=== PATIENT | male | born 1975 | race Caucasian/White ===

== ENCOUNTER → 2020-03-06 14:18 | Outpatient (CLI) | payer OTHER, SELFPAY ==
--- NOTE | ~2020-03-06 | MR_ITS ---
. EXAMINATION: MR shoulder LT wo con DATE: 03/06/2020 15:00 INDICATION: Superior glenoid labrum lesion of left shoulder. TECHNIQUE: Magnetic resonance imaging (MRI) of the left shoulder was performed without intravenous co ntrast. Sequences included axial PD-weighted FS FSE, coronal oblique PD-weighted FS FSE and T2-weight ed FS FSE, and sagittal oblique T2-weighted FS FSE and T1-weighted FSE. COMPARISON: Left shoulder radiographs 02/26/2020 FINDINGS: Coracoacromial arch: The acromion undersurface is curved in morphology (type II). There is severe acromioclavicular joint osteoarthritis including inferiorly directed osteophytes. There is mild subacromial/subdeltoid bursit is. Rotator cuff: There is severe supraspinatus tendinopathy and mild infraspinatus tendinopathy. Teres minor tendon is normal. There is mild subscapularis tendinopathy. No tear. There is no asymmetric fatty atrophy of t he rotator cuff muscle bellies. Biceps tendon and glenoid labrum: Biceps tendon is in bicipital groove. Intra-articular biceps tendon is normal. There is a tear of pos terior labrum from 7:00 to 9:00 with 4 mm paralabral cyst. Fluid: There is no glenohumeral joint effusion. Bones/cartilage: Glenoid cartilage is normal. Humeral cartilage is normal. IMPRESSION: 1. Tear of posterior labrum with small paralabral cyst. 2. Severe rotator cuff tendinopathy. No tear. 3. Severe acromioclavicular joint osteoarthritis. 4. Mild subacromial/subdeltoid bursitis. Reviewed, dictated and finalized at location A.
== END ==
PROVIDERS: PCP Family Medicine; Visit Provider Orthopaedic Surgery
DX: M19.012 Primary osteoarthritis, left shoulder (principal); M75.52 Bursitis of left shoulder; S43.432A Superior glenoid labrum lesion of left shoulder, initial encounter; X58.XXXA Exposure to other specified factors, initial encounter
CPT/HCPCS: 73221

== ENCOUNTER 2022-01-30 09:33 | Outpatient (CLI) | payer BC, SELFPAY ==
[2022-01-30 10:07] LABS: Cholesterol 128 mg/dL (0-200); HDL Direct 37 mg/dL; Triglycerides 126 mg/dL (<150)
[2022-01-30 10:18] LABS: LDL Cholesterol Direct 60 mg/dL
== END 2022-01-30 09:34 | disposition home or self-care (01) ==
LOC: ANHLAB 09:39
PROVIDERS: PCP Family Medicine; Visit Provider Specialist
DX: E78.5 Hyperlipidemia, unspecified (principal); I25.10 Atherosclerotic heart disease of native coronary artery without angina pectoris; Z95.5 Presence of coronary angioplasty implant and graft
CPT/HCPCS: 36415; 80061

== ENCOUNTER 2023-03-16 07:03 | Outpatient (CLI) | payer OTHER, SELFPAY ==
[2023-03-16 08:09] LABS: Cholesterol 127 mg/dL (0-200); HDL Direct 30 mg/dL; Triglycerides 152 mg/dL (<150)
[2023-03-16 08:19] LABS: LDL Cholesterol Direct 54 mg/dL
== END 2023-03-16 07:04 | disposition home or self-care (01) ==
PROVIDERS: PCP Family Medicine; Visit Provider Specialist
DX: I25.10 Atherosclerotic heart disease of native coronary artery without angina pectoris (principal)
CPT/HCPCS: 36415; 80061

== ENCOUNTER 2023-11-24 18:30 | Emergency (ER) | payer OTHER, SELFPAY ==
--- NOTE | ~2023-11-24 | XR_ITS ---
XR ankle RT min 3V 11/24/2023 19:28 INDICATION: Right ankle pain PROCEDURE: 4 views right ankle COMPARISON: No prior studies for comparison. FINDINGS: Fracture, dislocation or subluxation is not identified. The soft tissues appear within norm al limits. No foreign bodies are identified. IMPRESSION: 1: NO ACUTE BONE OR JOINT ABNORMALITY IDENTIFIED. Reviewed, dictated and finalized at location A.
[2023-11-24 18:53] VITALS: BP 125/81; PULSE 69; RESP 18; TEMP 36.8; O2SAT 98
--- NOTE | 2023-11-24 19:29 | ED.LOWEXIN ---
HPI - Extremity Injury (Lower) General Chief Complaint: Extremity Injury, Lower Stated Complaint: extremity injury Time Seen by Provider: 11/24/23 19:28 Source: patient Mode of arrival: ambulatory Limitations: no limitations History of Present Illness HPI Narrative: 48 YEARS OLD WHITE MALE CAME TO THE EMERGENCY ROOM BY PRIVATE CAR COMPLAINING OF SUDDEN ONSET OF PAIN AT THE BACK OF THE RIGHT ANKLE WHILE PLAYING BASKETBALL. HE DENIES OTHER INJURIES. UNABLE TO PUT WEIGHT ON IT, UNABLE TO FLEX OR EXTEND HIS RIGHT FOOT. Related Data Home Medications Medication Instructions Recorded Confirmed evolocumab 140 mg/mL subcutaneous 140 mg subcut ONCE 04/24/22 04/24/22 pen injector (Repatha SureClick) Allergies Allergy/AdvReac Type Severity Reaction Status Date / Time No Known Allergies Allergy Unknown Verified 04/24/22 09:39 Review of Systems Review of Systems: All systems reviewed & are unremarkable except as noted in HPI and below PMFSH Past Medical History Medical History Gastrocnemius strain, left Tendonitis of left rotator cuff Family History Family History Grandparent Family history of arthritis Family history of Alzheimer's disease Father Family history of sudden Social History Social History Smoking status: Never smoker Alcohol intake: current Exam Narrative: GENERAL APPEARANCE: WELL-DEVELOPED, WELL-NOURISHED SKIN: NORMAL COLOR HEAD: NORMOCEPHALIC, NONTRAUMATIC EYES: CLEAR CONJUNCTIVA ENT: OROPHARYNX NORMAL, EARS NORMAL, NOSE NORMAL NECK: SUPPLE, NONTENDER CHEST AND RESPIRATORY: AIRWAY PATENT, NO RESPIRATORY DISTRESS, NO ACCESSORY MUSCLE USE HEART: REGULAR RATE/RHYTHM ABDOMEN: SOFT, NONTENDER, NO ORGANOMEGALY, QUIET BOWEL SOUNDS VASCULAR: NORMAL PERIPHERAL PULSES, NORMAL CAPILLARY REFILL. MUSCULOSKELETAL: SEVERE DIFFUSE TENDERNESS OF THE RIGHT ACHILLES TENDON AT THE ANKLE AREA, POSITIVE DELGADO TEST NEUROLOGIC: ALERT AND ORIENTED ?3, INSIDE SALES LEAD IS NORMAL TESTED, NO GROSS MOTOR DEFICIT Course Vital Signs Vital signs: Vital Signs Temperature 36.8 C 11/24/23 18:53 Pulse Rate 69 11/24/23 18:53 Respiratory Rate 18 11/24/23 18:53 Blood Pressure 125/81 11/24/23 18:53 Pulse Oximetry 98 11/24/23 18:53 Temperature 36.8 C 11/24/23 18:53 Pulse Rate 69 11/24/23 18:53 Respiratory Rate 18 11/24/23 18:53 Blood Pressure 125/81 11/24/23 18:53 Pulse Oximetry 98 11/24/23 18:53 MDM - Extremity Injury (Lower) MDM Narrative Medical decision making narrative: PHYSICAL EXAM SHOWED POSITIVE DELGADO TEST CONSISTENT WITH ACHILLES TENDON RUPTURE, X-RAY OF THE RIGHT ANKLE SHOWED NO ACUTE ABNORMALITY, PATIENT WAS SEEN IN THE PAST BY DR CHAMORRO IN THE PAST AND WOULD LIKE TO FOLLOW UP WITH HIM. ICE PACK, LEG ELEVATION, IBUPROFEN, TYLENOL NEEDED, CRUTCHES, ANKLE BRACE OR WALKING BOOT Differential Diagnosis Differential diagnosis: Likely other ( ABOVE) Imaging Data Radiologist's impression: Impressions Ankle X-Ray 11/24/23 19:30 IMPRESSION: 1: NO ACUTE BONE OR JOINT ABNORMALITY IDENTIFIED. Critical Care Time Critical Care Time Critical Care Time: No Discharge Plan Discharge Clinical Impression: Achilles tendon injury Patient Disposition: Home, Self-Care Condition: Stable Instructions: Achilles Tendon Rupture (ED) Additional Instructions: RETURN IF SYMPTOMS ARE WORSENING , CALL DR. CHAMORRO FOR APPOINTMENT, TAKE TYLENOL, IBUPROFEN NEEDED FOR ACHES AND PAIN, CONTINUE HOME MEDI
--- NOTE | 2023-11-24 20:40 | PC.NURSE ---
Peyman wrap applied to Right foot/ankle. Pt returned demonstrated application.
[2023-11-24 21:07] VITALS: BP 135/74; PULSE 68; RESP 14; O2SAT 99
--- NOTE | 2023-11-24 21:07 | PC.NURSE ---
Declined crutches stating he has a pair at home. No crutches here in dept for pt's size, had called central supply.
== END 2023-11-24 21:08 | disposition home or self-care (01) ==
PROVIDERS: Emergency Provider Emergency Medicine; PCP Family Medicine
DX: S86.001A Unspecified injury of right Achilles tendon, initial encounter (principal); X58.XXXA Exposure to other specified factors, initial encounter; Y93.67 Activity, basketball
CPT/HCPCS: 73610; 99283

== ENCOUNTER 2023-12-02 08:28 | Day surgery (SDC) | payer OTHER, SELFPAY ==
[2023-12-01 08:55] VITALS: BMI 29.9
--- NOTE | 2023-12-01 09:00 | PC.NURSE ---
Report to the Outpatient Waiting Room, entrance under the green pavilion located off [facility], at time 0930 on date 12/03/23. Planned Procedure Time: 1130. Time changes happen often and if your time is changed the preop area will call you the afternoon before. - You and your visitor will be asked to self-screen and do not enter if you have any COVID symptoms. - A mask is optional within the hospital at this time. Patients may have clear liquids (water, carbonated beverages, clear teas, apple juice) until 3 hours prior to surgery with a maximum of 20 ounces. - No food from midnight until time of surgery Take the following medications with a SIP of water the morning of surgery: PAIN PILL IF NEEDED DO NOT STOP ANY OF YOUR OTHER PRESCRIPTION MEDICATIONS PRIOR TO SURGERY ?EXCEPT THE FOLLOWING Medications to discontinue per physician: N/A Date to take last dose: N/A Please no make-up, nail english, hairspray, perfume, deodorant, or body powder the day of surgery. No jewelry (including any body piercings) or valuables the day of surgery, leave them at home. Please take a shower or bath the night before, or the morning of, surgery with an antibacterial soap. Wear comfortable, loose fitting clothing. - Jewelry must be removed prior to entering the operating room. Rings and piercings that are not removed may be cut off. - The hospital will not accept responsibility for valuables. - Please leave all valuables, including medications, at home the day of surgery. If you are going home after surgery, a licensed parts delivery driver must drive you home. - NO public transportation without another adult if you receive anesthesia. - We recommend that an adult stay with you for 24 hours following discharge. - We also recommend that you do not drive, make important decision, drink alcoholic beverages, or take any drugs that were not prescribed by your health care provider for at least 24 hours after your discharge time. Follow any additional instructions given to you from your surgeon. If you or anyone in your household have experienced Covid symptoms in the past week, please notify your surgeon or the nurse liaison at the phone number below for possible testing. Telephone instructions given to PT - SYED and asked if any additional questions and then verbalized understanding. Patient advised to call surgeon office or pre surgery nurse liaison [phone] if any additional questions.
[2023-12-02] VITALS (9 sets, daily range): BP systolic 124–167; BP diastolic 86–104; PULSE 61–82; RESP 10–20; TEMP 35.9; O2SAT 94–100
--- NOTE | 2023-12-02 08:57 | ECG_ITS ---
SEE SCANNED COPY FOR CONFIRMED REPORT MTDD
--- NOTE | 2023-12-02 09:32 | WPDANESEPPF ---
Anes - Initial Pre Proc Eval Procedure: Operation Date: 12/02/23 10:00 Proposed Procedures p Right Achilles Tendon Repair - Sonido Nelson MD Date/Time: 12/02/23 09:32 Surgeon: Sonido Nelson MD Pre Op Diagnosis: acute achilles tendon rupture Patient Data Age: 48 Gender: M Height: 1.91 m Weight: 108.9 kg Allergies Allergy/AdvReac Type Severity Reaction Status Date / Time No Known Allergies Allergy Unknown Verified 12/01/23 08:54 Home Medications Medication Instructions Recorded Confirmed Type evolocumab 140 mg/mL subcutaneous 140 mg subcut ONCE 04/24/22 12/01/23 History pen injector (Repatha SureLamineick) hydrocodone 5 mg-acetaminophen 325 1 - 2 tablet PO Q4H PRN pain #30 11/30/23 12/01/23 Rx mg tablet tabs Patient hx anesthesia problems: none Family hx anesthesia problems: none Results Review: All pre-operative results and documents have been reviewed as part of the pre-operative evaluation. [facility] Past Medical History Medical History Gastrocnemius strain, left Tendonitis of left rotator cuff Family History Family History Grandparent Family history of arthritis Family history of Alzheimer's disease Father Family history of sudden Social History Social History Smoking status: Never smoker Alcohol intake: current Alcohol use details: VERY RARE Substance use: never Substance use type: does not use Do You Feel Safe in your Home?: Yes Lack of Transportation: No Lack of Food: Never True Current Housing: I Have Housing Concerned About Future Housing: No Difficulty Paying Gas/Electric Bills: No Difficulty Paying for Meds: No Currently Unemployed: No Education: Master's Degree or Higher Difficulty w/ Childcare or Family Care: No Living arrangements: with family Spiritual care concerns: No Anes - Eval Final PreProcedure Day of Procedure 12/02/23 09:32 Patient weight: overweight Heart: regular rate and rhythm Lungs: clear to auscultation Airway: Mallampati scale Neurological: alert and oriented Last oral intake: >/= 8 hours ASA classification: III Emergent: no Anesthetic plan: proceed Anesthesia type and monitoring: general ETT and standard monitoring Results Review: All pre-operative results and documents have been reviewed as part of the pre-operative evaluation. Pt s/p PTCA 2019, doing well since, able to play basketball (led up to injury), no cp or sob. Informed Consent: The patient's anesthetic plan and its attendant risks and benefits were discussed with the patient/family/POA. Questions were solicited and answers provided to the satisfaction of the patient/family/POA.
[2023-12-02] MEDS: ACETAMINOPHEN 500 MG TABLET 1000 MG PO (09:35)
[2023-12-02] MEDS: KETOROLAC 15 MG/ML VIAL (*BKC) IV PUSH (09:35)
[2023-12-02] MEDS: ceFAZolin 2 GM/D5W 50 ML 2 GM/50 ML BAG IVPB (09:35)
--- NOTE | 2023-12-02 10:04 | WPDHPUPDATE1 ---
History and Physical Update Update Date/Time: 12/02/23 10:04 History and Physical has been reviewed, including an updated exam of the patient. There are NO changes in the patient's condition. Risks, benefits, and alternatives have been discussed and questions answered. Patient agrees to proceed with procedure.
[2023-12-02] MEDS: LACTATED RINGERS 1,000 ML 30 ML IV CONT ×2 (12:15)
[2023-12-02] MEDS: fentaNYL CITRATE INJ (*CRX) 100 MCG/2 ML VIAL 25 MCG IV PUSH ×8 (12:35→13:09)
--- NOTE | 2023-12-02 12:46 | P.OP_ITS ---
Procedure Note - Detailed Date of Procedure 12/02/23 Pre-op Diagnosis Acute achilles tendon rupture, right. Post-op Diagnosis Same Procedure Performed Right Achilles tendon repair. Surgeon Sonido Nelson MD Heavy Equipment Technician Rickie Kelly Anesthesia General Findings Acute complete rupture right Achilles tendon. Description of Procedure Preoperative antibiotics were given. A general anesthetic was administered. Patient was placed in the prone position. Careful padding on the chest was performed. A bolster was placed under the ankles. Resting angle contralateral ankle was compared for tension assessment of the repair. The leg was prepped and draped in usual sterile fashion. A tourniquet was applied on the thigh but not used. A longitudinal incision approximately 7 cm was created along the medial aspect of the Achilles tendon border. Careful soft tissue handling was assured. The peritenon was protected and incised longitudinally along the center of the tendon. The torn ends of the tendon were lightly debrided. Krackow sutures were woven from the torn edge proximally and distally. The 2 free limbs were passed across the defect around the looped and of the Krackow sutures. This gift-box configuration was very secure and reapproximated the tendon ends very nicely. Tendon tension was restored. The ends were oversewn with interrupted 1. Vicryl suture. The wound was copiously irrigated. The wicho T9 was repaired with 2-0 Monocryl suture. The subcutaneous tissues were closed with 3-0 Monocryl suture and interrupted horizontal mattress 3-0 nylon suture. Xeroform was applied. A sterile bulky dressing with posterior splint and stirrups placed. The patient was extubated and brought to the recovery room in stable condition. There were no complications. Estimated Blood Loss 20 Pathology None sent Complications No immediate complications Condition Stable Disposition Same day [facility] Billing Surgery - Charge Forward: Surgery Billing
[2023-12-02] MEDS: oxyCODONE HCL (*CRX) 5 MG TAB IR PO (13:33)
== END 2023-12-02 14:13 | disposition home or self-care (01) ==
PROVIDERS: PCP Family Medicine; Visit Provider Orthopaedic Surgery
PROC: (CPT 27650; principal; 2023-12-02 10:00)
DX: S86.011A Strain of right Achilles tendon, initial encounter (principal); X58.XXXA Exposure to other specified factors, initial encounter; Y93.67 Activity, basketball; Z79.891 Long term (current) use of opiate analgesic; Z79.85 Long-term (current) use of injectable non-insulin antidiabetic drugs
CPT/HCPCS: 27650; 93005; A9270; J0690; J1100; J1885; J2405; J2704; J3010; J7120

== ENCOUNTER 2024-10-23 09:47 | Emergency (ER) | payer OTHER, SELFPAY ==
--- NOTE | ~2024-10-23 | XR_ITS ---
EXAMINATION: XR finger 2nd RT min 2V DATE: 10/23/2024 10:52 INDICATION: Right hand second digit splinter. TECHNIQUE: 4 views of right hand second digit were obtained. COMPARISON: None. FINDINGS: Alignment is normal. No fracture. 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 IMPRESSION: 1. No radiopaque foreign body. Note that wood is not radiopaque. Reviewed, dictated and finalized at location B.
[2024-10-23 09:50] VITALS: BP 163/92; PULSE 98; RESP 16; TEMP 36.5; O2SAT 98
--- NOTE | 2024-10-23 10:44 | ED_ITS ---
HPI - Wound/Laceration General Chief Complaint: Wound/Laceration Stated Complaint: splinter Time Seen by Provider: 10/23/24 10:34 Source: patient Mode of arrival: ambulatory Limitations: no limitations History of Present Illness HPI narrative: This is a 49-year-old male that presents to the emergency department after an injury to the right 2nd finger. Reports he has a piece of plywood stuck in the finger. He attempted to remove it, but was unable to. Has had worsening discomfort in the area. Denies fever or abnormal drainage. 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 Gastrocnemius strain, left Tendonitis of left rotator cuff Surgical History Surgical History Status post Achilles tendon repair Family History Family History Grandparent Family history of arthritis Family history of Alzheimer's disease Father Family history of sudden Social History Social History Smoking status: Never smoker Alcohol intake: current Alcohol use details: VERY RARE Substance use: never Substance use type: does not use Do You Feel Safe in your Home?: Yes Lack of Transportation: No Lack of Food: Never True Current Housing: I Have Housing Concerned About Future Housing: No Difficulty Paying Gas/Electric Bills: No Difficulty Paying for Meds: No Currently Unemployed: No Education: Master's Degree or Higher Difficulty w/ Childcare or Family Care: No Living arrangements: with family Spiritual care concerns: No Exam Narrative: GENERAL: Well-appearing, well-nourished, and in no acute distress. HEAD: Normocephalic, atraumatic. EYES: EOMI. EXTREMITIES: Normal range of motion. No edema or erythema. Foreign body felt under the skin of the right 2nd finger middle phalanx palmar surface SKIN: Warm, dry, no rash. NEURO: No focal deficits. Alert and oriented x3. PSYCH: Normal mood and affect Course Vital Signs Vital signs: Vital Signs Temperature 97.7 F 10/23/24 09:50 Pulse Rate 98 10/23/24 09:50 Respiratory Rate 16 10/23/24 09:50 Blood Pressure 163/92 H 10/23/24 09:50 Pulse Oximetry 98 10/23/24 09:50 Oxygen Delivery Room Air 10/23/24 09:50 Temperature 97.7 F 10/23/24 09:50 Pulse Rate 98 10/23/24 09:50 Respiratory Rate 16 10/23/24 09:50 Blood Pressure 163/92 H 10/23/24 09:50 Pulse Oximetry 98 10/23/24 09:50 Oxygen Delivery Room Air 10/23/24 09:50 Procedures Foreign Body Removal Foreign Body #1: Foreign Body Removal Date: 10/23/24 Foreign Body Removal Time: 11:43 Site: right and hand Description of foreign body: other (splinter) Sedation/Analgesia: other (lidocaine) Technique: removal with forceps and incision made to facilitate removal Confirmed by:: direct visualization Complications: none Post-procedure exam: awake, alert Neurovascular: normal capillary fill and no change from pre-procedure MDM - Wound/Laceration MDM Narrative Medical decision making narrative: Patient presents the emergency department for a splinter in his right 2nd finger. This was easily removed. Patient is neurovascularly intact. Updated on tetanus vaccination. Will be started on prophylactic antibiotics. Instructed to follow-up with his PCP. He was given warnings to return to the ER Differential Diagnosis Differential diagnosis: Likely laceration, avulsion of skin and other (foreign body) Imaging Data Radiologist's impression: ITS Impressions Finger X-Ray 10/23/24 11:08 IMPRESSION: 1. No radiopaque foreign body. Note that wood is not radiopaque. Critical Care Time Critical Care Time Critical Care Time: No Discharge Plan Discharge Clinical Impression: Foreign body of finger of right hand Patient Disposition: Home, Self-Care Condition: Stable Instructions: Antibiotic Form, Soft Tissue Foreign Body (ED) Additional Instructions: Return to the emergency department if you experience fever, redness or swelling of your wound, abnormal drainage from your wound, or any other symptoms that are concerning to you. Apply antibiotic ointment daily. Do not soak the wound. Clean with mild soap and water daily. Take oral antibiotic as prescribed Follow-up with your primary care doctor for wound check Patient Language: Yi Prescriptions: New cephalexin 500 mg capsule 500 mg PO Q8H 5 Days Qty: 15 0RF No Action Repatha SureClick 140 mg/mL pen injector 140 mg subcut ONCE Paxlovid 300 mg (150 mg x 2)-100 mg tablets,dose pack See Rx Instructions PO .COMPLEX Qty: 30 0RF Rx Instructions: take TWO 150 mg tablets of nirmatrelvir with ONE 100 mg tablet of ritonavir twice daily for 5 days PO azithromycin 250 mg tablet See Rx Instructions PO .COMPLEX Qty: 6 0RF Rx Instructions: For 250 mg dose pack: take 500 mg today (day 1), then 250 mg for 4 days (days 2-5) PO Follow-up/Referrals: Ernesto Kessler MD [Primary Care Provider] -
--- OUTSIDE RECORDS SUMMARY | 2024-10-23 11:09 | XMS_ITS | Encounter Summary ---
Author Organization [facility] Address [address] [facility] [place] [address] Care Team Providers Care Diesel Scoop Operator Name Role Phone Unavailable Primary Care Provider Unavailabl e Encounter Details Date Type Department Care Team (Late st Contact Info) Description 05/04/2023 Lab Requisition [facility] - DermPath Lab [address], [facility] [place] [phone] Saravanan Dunlap MD [address] [place] [address] Social History Tobacco Use Types Packs/Day Years Used Date Smoking Tobacco: Never Assessed Sex and Gender Information Value Date Recorded Sex Assigned at Not on file Gender Identity Not on file Sexual Orientation Not on file documented as of this encounter Plan of Treatment Not on file documented as of this encounter Procedures Procedure Name Priority Date/Time Associated Diagnosis Comments DERMATOPATHOLOGY Routine 05/03/2023 12:0 0 AM CDT documented in this encounter Results * DERMATOPATHOLOGY (05/03/2023 12:00 AM CDT) Case Report Dermatopathology Report Case: [id number] Authorizing Provider: Saravanan Dunlap MD Collected: 05/03/2023 12:00 AM Ordering Location: [facility] DermPath Lab Received: 05/04/2023 03:55 PM Pathologist: Roslyn Villafuerte MD Specimen: Skin, left lateral cali 3 5:55 PM CDT DERMATOPATHOLOGY LABORATORY Final Diagnosis Specimen A. SKIN, left lateral cali: BASAL CELL CARCINOMA, SUPERFICIAL MULTIFOCAL (C44.719) 3 5:55 PM CDT DERMATOPATHOLOGY LABORATORY Clinical History Lentigo vs SK vs SCCA Path#[id number] 3 5:55 PM CDT DERMATOPATHOLOGY LABORATORY Gross Description Specimen A: Received is one formalin filled container labeled with the patient's name and designated left lateral cali. The specimen consists of a shave biopsy measuring 7x5x1 mm. Jar 0. 3 5:55 PM CDT DERMATOPATHOLOGY LABORATORY Microscopic Description Specimen A. SKIN, left lateral cali: Attached to the undersurface of the epidermis, there are small aggregates of basaloid cells with a high nuclear to cytoplasmic ratio and peripheral palisading. 3 5:55 PM CDT DERMATOPATHOLOGY LABORATORY Disclaimer An external and internal positive and negative controls are appropriate for the histochemical, immunohistochemical and immunofluorescence stain(s) in this case (if any), except where stated explicitly. The performance characteristics of the stain(s) cited in this report were developed and its performance characteristic determined by the Dermatopathology Laboratory at [facility], directed by Dr. Johana Villafuerte. These tests need not be, and therefore are not, approved by the [place] Food and Drug Administration. The tests are used for clinical purposes. Billing Codes Specimen Charges Stain Charges 33939 1 3 5:55 PM CDT DERMATOPATHOLOGY LABORATORY Embedded Images 3 5:55 PM CDT DERMATOPATHOLOGY LABORATORY Pathology/Cytolog y TISSUE SPECIMEN FROM SKIN / Unknown 05/03/2023 05/04/2023 3:55 PM CDT Saravanan Dunlap MD LAB - PATHOLOGY/CYTO LOGY ORDERABLES DERMATOPATHOLOGY LABORATORY [facility] - Department of Dermatology [address], [address] [phone] documented in this encounter Visit Diagnoses Not on filedocumented in this encounter
--- OUTSIDE RECORDS SUMMARY | 2024-10-23 11:09 | XMS_ITS | Clinical Summary ---
Author Organization [facility] [address] Address [address] [place] [address] Care Team Providers Care Card Folder Name Role Phone Ernesto Kessler MD Primary Care Provider [phone] Allergies Active Allergy Reactions Criticality Noted Date Comments Gozktxo-Hpl-Jri Reductase Inhibitors Muscle pain Medium 09/24/2020 Medications aspirin 81 mg enteric coated tablet Take 1 tablet (81 mg total) by mouth daily Active evolocumab (Repatha SureClick) 140 mg/mL pen injector Inject 1 mL (140 mg total) under the skin every 14 (fourteen) days 2 mL 11 05/29/2024 Active Active Problems Problem Noted Date Diagnosed Date Coronary artery disease invo lving [place] coronary artery of [place] heart without angina pectoris 05/25/2019 History of coronary artery stent placement 05/25 Abnormal stress test 02/14/2019 Arthralgia of shoulder 07/29/2015 Encounters Date Type Department Care Team Description 10/20/2024 2:00 PM REVENUE CYCLE ADMINISTRATOR Office Visit [facility] Cardiology at [address] [place] [address] Bandar Hernandez MD History of coronary artery stent placement (Primary Dx); Coronary artery disease involving [place] coronary artery of [place] heart without angina pectoris from Last 3 Months Surgical History Surgery Date Site/Laterality Comments ANGIOPLASTY 02/13/2019 - 03/15/2019 Medical History Medical History Date Comments Coronary artery disease Family History Medical History Relation Name Comments Lung disease Father Family history of lung disease - (Added by TW Conv) Arthritis Other 1 Family history of arthritis - Relation: Grandmother (Added by TW Conv) Hypertension Other 2 Family history of hypertension - Relation: Grandmother (Added by TW Conv) Gout Other 3 Family history of gout - Relation: Grandmother (Added by TW Conv) Cancer Other 4 Family history of malignant neoplasm - Relation: Grandmother (Added by TW Conv) Lung disease Other 5 Family history of lung disease - Relation: Grandmother (Added by TW Conv) Relation Name Status Comments Father Other 1 Other 2 Other 3 Other 4 Other 5 Social History Tobacco Use Types Packs/Day Years Used Date Smoking Tobacco: Never Smokeless Tobacco: Never Alcohol Use Standard Drinks/Week Comments Yes 0 (1 standard drink = 0.6 oz pur e alcohol) once monthly, social drinker Sex and Gender Information Value Date Recorded Sex Assigned at Not on file Legal Sex Male 10:46 AM REVENUE CYCLE ADMINISTRATOR Gender Identity Male 09/19/2020 2:59 PM REVENUE CYCLE ADMINISTRATOR Sexual Orientation Straight 09/19/2020 2: 59 PM REVENUE CYCLE ADMINISTRATOR Obstetrics History Last Filed Vital Signs Vital Sign Reading Time Taken Comments Blood Pressure 140/96 10/20/2024 1:48 PM REVENUE CYCLE ADMINISTRATOR Pulse 59 10/20/2024 1:48 PM REVENUE CYCLE ADMINISTRATOR Temperature 36.3 C (97.3 F) 05/28/2020 1:55 PM CDT Respiratory Rate - - Oxygen Saturation 97% 10/20/2024 1:48 PM REVENUE CYCLE ADMINISTRATOR Inhaled Oxygen Concentration - - Weight 115.2 kg (254 lb) 10/20/2024 1:48 PM REVENUE CYCLE ADMINISTRATOR Height 190.5 cm (6' 3 ) 10/20/2024 1:48 PM REVENUE CYCLE ADMINISTRATOR Body Mass Index 31.75 10/20/2024 1:48 PM REVENUE CYCLE ADMINISTRATOR Plan of Treatment Health Maintenance Due Date Last Done Comments Colon Cancer Screening-Colonoscopy 1973 Depression Screening 1973 Hepatitis C Screening 1973 Prostate Cancer Screening-PSA 1973 DTaP/Tdap/Td Vaccine (1 - Tdap) 1984 Hepatitis B Screening 1991 Regular Well Visit/Exam 18-64 1991 Zoster Vaccine (1 of 2) 2023 Influenza Vaccine (#1) 2024 9, 05/25/2018, 05/20/2017, Additional history exists Pneumococcal vaccine <65 Aged Out No longer eligible based on patient's age to complete this topic Insurance [facility] [id number] Care Teams Card Folder Relationship Specialty Start Date End Date Ernesto Kessler MD [address] [place] [address] HAKAN BROWN [phone] PCP - General Family Medicine 02/13/19
--- OUTSIDE RECORDS SUMMARY | 2024-10-23 11:09 | XMS_ITS | Referral Summary ---
Author Organization [facility] Address [address] [facility] [place] [address] Care Team Providers Care Mold Blower Name Role Phone Unavailable Primary Care Provider Unavailabl e Source Comments [facility],non-owned Affiliates and Associated Physician Practices is amultiple site organization consisting of ambulatory clinics and hospital sitesin [place], [place], [place] and [place]. This disclosure is being madepursuant to the Care Everywhere program and may not contain all information available regarding this patient. Last updated 18.[facility] Social History Tobacco Use Types Packs/Day Years Used Date Smoking Tobacco: Never Assessed Sex and Gender Information Value Date Recorded Sex Assigned at Not on file Gender Identity Not on file Sexual Orientation Not on file Plan of Treatment Not on file
--- OUTSIDE RECORDS SUMMARY | 2024-10-23 11:09 | XMS_ITS | Clinical Summary ---
Author Organization [facility] [employer] Address [address] [place] [address] Care Team Providers Care Chemical Processing Laborer Name Role Phone Unavailable Primary Care Provider Unavailabl e Source Comments [facility] [employer],non-owned Affiliates and Associated Physician Practices is amultiple site organization consisting of ambulatory clinics and hospital sitesin [place], [place], [place] and [place]. This disclosure is being madepursuant to the Care Everywhere program and may not contain all information available regarding this patient. Last updated 18.[facility] [employer] Social History Tobacco Use Types Packs/Day Years Used Date Smoking Tobacco: Never Assessed Sex and Gender Information Value Date Recorded Sex Assigned at Not on file Gender Identity Not on file Sexual Orientation Not on file Plan of Treatment Health Maintenance Due Date Last Done Comments COLOGUARD (AGES 45-75) - COL ON CA SCREENING 1973 COLON MONITORING 1973 COLONOSCOPY - COLON CA SCREENING 1973 CT COLONOGRAPHY - COLON CA SCREENING 1973 Colorectal Cancer Screening 1973 FIT - COLON CA SCREENING 1973 FLEX SIG - COLON CA SCREENING 1973 LIPID TESTING 1973 HIV SCREENING 1988 HEPATITIS C SCREENING 07/08/1991 DTAP/TDAP/TD VACCINES (1 - Tdap) 1992 HEPATITIS B VACCINE (1 of 3 - 19+ 3-dose series) 1992 PNEUMOCOCCAL VACCINE 50+ (1 of 1 - PCV) 2023 ZOSTER VACCINE (1 of 2) 2023 COVID-19 VACCINE ( - 2023-2 5 season) 2024 INFLUENZA VACCINE (#1) 2024 DEPRESSION SCREENING 08/16/2024 HIB VACCINE Aged Out No longer eligi ble based on patient's age to complete this topic HPV VACCINE Aged Out No longer eligi ble based on patient's age to complete this topic MENINGOCOCCAL (Group B) VACCINE Aged Out No longer eligible based on patient's age to complete this topic MENINGOCOCCAL VACCINE Aged Out No zacarias les eligible based on patient's age to complete this topic PNEUMOCOCCAL VACCINE Aged Out No long er eligible based on patient's age to complete this topic
--- OUTSIDE RECORDS SUMMARY | 2024-10-23 11:09 | XMS_ITS | Referral Summary ---
Author Organization [facility] [address] Address [address] [place] [address] Care Team Providers Care Safety Net Maker Name Role Phone Ernesto Kessler MD Primary Care Provider [phone] Encounters Date Type Department Care Team Description 10/20/2024 2:00 PM VETERINARY HOSPITAL ATTENDANT Office Visit [facility] Cardiology at [address] [place] [address] Bandar Hernandez MD History of coronary artery stent placement (Primary Dx); Coronary artery disease involving [place] coronary artery of [place] heart without angina pectoris from Last 3 Months Allergies Active Allergy Reactions Criticality Noted Date Comments Lngesqu-Ztq-Ics Reductase Inhibitors Muscle pain Medium 09/24/2020 Medications aspirin 81 mg enteric coated tablet Take 1 tablet (81 mg total) by mouth daily Active evolocumab (Repatha [employer]) 140 mg/mL pen injector Inject 1 mL (140 mg total) under the skin every 14 (fourteen) days 2 mL 11 05/29/2024 Active Active Problems Problem Noted Date Diagnosed Date Coronary artery disease invo lving [place] coronary artery of [place] heart without angina pectoris 05/25/2019 History of coronary artery stent placement 05/25 Abnormal stress test 02/14/2019 Arthralgia of shoulder 07/29/2015 Social History Tobacco Use Types Packs/Day Years Used Date Smoking Tobacco: Never Smokeless Tobacco: Never Alcohol Use Standard Drinks/Week Comments Yes 0 (1 standard drink = 0.6 oz pur e alcohol) once monthly, social drinker Sex and Gender Information Value Date Recorded Sex Assigned at Not on file Legal Sex Male 10:46 AM VETERINARY HOSPITAL ATTENDANT Gender Identity Male 09/19/2020 2:59 PM VETERINARY HOSPITAL ATTENDANT Sexual Orientation Straight 09/19/2020 2: 59 PM VETERINARY HOSPITAL ATTENDANT Last Filed Vital Signs Vital Sign Reading Time Taken Comments Blood Pressure 140/96 10/20/2024 1:48 PM VETERINARY HOSPITAL ATTENDANT Pulse 59 10/20/2024 1:48 PM VETERINARY HOSPITAL ATTENDANT Temperature 36.3 C (97.3 F) 05/28/2020 1:55 PM CDT Respiratory Rate - - Oxygen Saturation 97% 10/20/2024 1:48 PM VETERINARY HOSPITAL ATTENDANT Inhaled Oxygen Concentration - - Weight 115.2 kg (254 lb) 10/20/2024 1:48 PM VETERINARY HOSPITAL ATTENDANT Height 190.5 cm (6' 3 ) 10/20/2024 1:48 PM VETERINARY HOSPITAL ATTENDANT Body Mass Index 31.75 10/20/2024 1:48 PM VETERINARY HOSPITAL ATTENDANT Plan of Treatment Not on file Insurance [facility] [id number] Care Teams Safety Net Maker Relationship Specialty Start Date End Date Ernesto Kessler MD [address] [place] [address] HAKAN RBOWN [id number] PCP - General Family Medicine 02/13/19
--- OUTSIDE RECORDS SUMMARY | 2024-10-23 11:09 | XMS_ITS | Patient Health Summary ---
Author Organization [facility] Address [address] [facility] [place] [address] Care Team Providers Care Mexican Food Maker Hand Name Role Phone Unavailable Primary Care Provider Unavailabl e Note from [facility],non-owned Affiliates and Associated Physician Practices is amultiple site organization consisting of ambulatory clinics and hospital sitesin [place], [place], [place] and [place]. This disclosure is being madepursuant to the Care Everywhere program and may not contain all information available regarding this patient. Last updated 18.[facility] Social History Tobacco Use Types Packs/Day Years Used Date Smoking Tobacco: Never Assessed Sex and Gender Information Value Date Recorded Sex Assigned at Not on file Gender Identity Not on file Sexual Orientation Not on file Procedures * DERMATOPATHOLOGY(Performed 05/03/2023) Results * DERMATOPATHOLOGY (05/03/2023 12:00 AM CDT) Case Report Dermatopathology Report Case: [id number] Authorizing Provider: Saravanan Dunlap MD Collected: 05/03/2023 12:00 AM Ordering Location: [facility] DermPath Lab Received: 05/04/2023 03:55 PM Pathologist: Roslyn Villafuerte MD Specimen: Skin, left lateral cali 3 5:55 PM CDT DERMATOPATHOLOGY LABORATORY Final Diagnosis Specimen A. SKIN, left lateral cali: BASAL CELL CARCINOMA, SUPERFICIAL MULTIFOCAL (C44.719) 3 5:55 PM CDT DERMATOPATHOLOGY LABORATORY Clinical History Lentigo vs SK vs SCCA Path#[id number] 3 5:55 PM CDT DERMATOPATHOLOGY LABORATORY Gross Description Specimen A: Received is one formalin filled container labeled with the patient's name and designated left lateral cali. The specimen consists of a shave biopsy measuring 7x5x1 mm. Jar 0. 09/22/202 3 5:55 PM CDT DERMATOPATHOLOGY LABORATORY Microscopic [...] characteristic determined by the Dermatopathology Laboratory at [facility], directed by Dr. Johana Villafuerte. These tests need not be, and therefore are not, approved by the [place] Food and Drug Administration. The tests are used for clinical purposes. Billing Codes Specimen Charges Stain Charges 83856 1 3 5:55 PM CDT DERMATOPATHOLOGY LABORATORY Embedded Images 3 5:55 PM CDT DERMATOPATHOLOGY LABORATORY Pathology/Cytolog y TISSUE SPECIMEN FROM SKIN / Unknown 05/03/2023 05/04/2023 3:55 PM CDT Saravanan Dunlap MD LAB - PATHOLOGY/CYTO LOGY ORDERABLES DERMATOPATHOLOGY LABORATORY [facility] - Department of Dermatology [address], [address] [phone]
[2024-10-23] MEDS: TETANUS,DIPHTHERIA,AC PERTUSSIS ADULT (0.5 ML) BOOSTRIX IM (11:46)
--- OUTSIDE RECORDS SUMMARY | 2024-10-23 13:26 | XMS_ITS | Clinical Summary ---
Author Organization [facility] [address] Address [address] [place] [address] Care Team Providers Care National Sales Trainer Name Role Phone Ernesto Kessler MD Primary Care Provider [phone] Allergies Active Allergy Reactions Criticality Noted Date Comments Znjgzgd-Cvk-Det Reductase Inhibitors Muscle pain Medium 09/24/2020 Medications aspirin 81 mg enteric coated tablet Take 1 tablet (81 mg total) by mouth daily Active evolocumab (Repatha SureClick) 140 mg/mL pen injector Inject 1 mL (140 mg total) under the skin every 14 (fourteen) days 2 mL 11 05/29/2024 Active Active Problems Problem Noted Date Diagnosed Date Coronary artery disease invo lving redd[place] coronary artery of redding heart without angina pectoris 05/25/2019 History of coronary artery stent placement 05/25 Abnormal stress test 02/14/2019 Arthralgia of shoulder 07/29/2015 Encounters Date Type Department Care Team Description 10/20/2024 2:00 PM PRODUCTION PACKAGER Office Visit [facility] Cardiology at [address] [place] [address] Bandar Hernandez MD History of coronary artery stent placement (Primary Dx); Coronary artery disease involving redd[place] coronary artery of redding heart without angina pectoris from Last 3 [...] on file Legal Sex Male 10:46 AM PRODUCTION PACKAGER Gender Identity Male 09/19/2020 2:59 PM PRODUCTION PACKAGER Sexual Orientation Straight 09/19/2020 2: 59 PM PRODUCTION PACKAGER Obstetrics History Last Filed Vital Signs Vital Sign Reading Time Taken Comments Blood Pressure 140/96 10/20/2024 1:48 PM PRODUCTION PACKAGER Pulse 59 10/20/2024 1:48 PM PRODUCTION PACKAGER Temperature 36.3 C (97.3 F) 05/28/2020 1:55 PM CDT Respiratory Rate - - Oxygen Saturation 97% 10/20/2024 1:48 PM PRODUCTION PACKAGER Inhaled Oxygen Concentration - - Weight 115.2 kg (254 lb) 10/20/2024 1:48 PM PRODUCTION PACKAGER Height 190.5 cm (6' 3 ) 10/20/2024 1:48 PM PRODUCTION PACKAGER Body Mass Index 31.75 10/20/2024 1:48 PM PRODUCTION PACKAGER Plan of Treatment Health Maintenance Due Date [...] patient's age to complete this topic Insurance [facility] [id number] Care Teams National Sales Trainer Relationship Specialty Start Date End Date Ernesto Kessler MD [address] [place] [address] HAKAN BROWN [phone] PCP - General Family Medicine 02/13/19
--- OUTSIDE RECORDS SUMMARY | 2024-10-23 13:27 | XMS_ITS | Clinical Summary ---
Author Organization [facility] [employer] Address [address] [facility] [place] [address] Care Team Providers Care Lifter Driver Name Role Phone Unavailable Primary Care Provider Unavailabl e Source Comments [facility] [employer],non-owned Affiliates and Associated Physician Practices is amultiple site organization consisting of ambulatory clinics and hospital sitesin [place], [place], [place] and [place]. This disclosure is being madepursuant to the Care Everywhere program and may not contain all information available regarding this patient. Last updated 18.[facility] [employer] Social History Tobacco Use Types Packs/Day Years [...]
--- OUTSIDE RECORDS SUMMARY | 2024-10-23 13:27 | XMS_ITS | Patient Health Summary ---
Author Organization [facility] Address [address] [facility] [place] [address] Care Team Providers Care Billing Department Supervisor Name Role Phone Unavailable Primary Care Provider Unavailabl e Note from [facility],non-owned Affiliates and Associated Physician Practices is amultiple site organization consisting of ambulatory clinics and hospital sitesin [place], [place], [place] and [place]. This disclosure is being madepursuant to the Care Everywhere program and may not contain all information available regarding this patient. Last updated 18.[facility] Social History Tobacco Use Types Packs/Day Years Used Date Smoking Tobacco: Never Assessed Sex and Gender Information Value Date Recorded Sex Assigned at Not on file Gender Identity Not on file Sexual Orientation Not on file Procedures * DERMATOPATHOLOGY(Performed 05/03/2023) Results * DERMATOPATHOLOGY (05/03/2023 12:00 AM CDT) Case Report Dermatopathology Report Case: [id number] Authorizing Provider: Saravanan Dunlap MD Collected: 05/03/2023 12:00 AM Ordering Location: [facility] DermPath Lab Received: 05/04/2023 03:55 PM Pathologist: Roslyn Villafuerte MD Specimen: Skin, left lateral cali 3 5:55 PM CDT DERMATOPATHOLOGY LABORATORY Final Diagnosis Specimen A. SKIN, left lateral acli: BASAL CELL CARCINOMA, SUPERFICIAL MULTIFOCAL (C44.719) 3 5:55 PM CDT DERMATOPATHOLOGY LABORATORY Clinical History Lentigo vs SK vs SCCA Path#[id number] 3 5:55 PM CDT DERMATOPATHOLOGY LABORATORY Gross [...] characteristic determined by the Dermatopathology Laboratory at [facility], directed by Dr. Johana Villafuerte. These tests need not be, and therefore are not, approved by the [place] Food and Drug Administration. The tests are used for clinical purposes. Billing Codes Specimen Charges Stain Charges 11300 1 3 5:55 PM CDT DERMATOPATHOLOGY LABORATORY Embedded Images 3 5:55 PM CDT DERMATOPATHOLOGY LABORATORY Pathology/Cytolog y TISSUE SPECIMEN FROM SKIN / Unknown 05/03/2023 05/04/2023 3:55 PM CDT Saravanan Dunlap MD LAB - PATHOLOGY/CYTO LOGY ORDERABLES DERMATOPATHOLOGY LABORATORY [facility] - Department of Dermatology [address], [address] [phone]
--- OUTSIDE RECORDS SUMMARY | 2024-10-23 13:27 | XMS_ITS | Referral Summary ---
Author Organization [facility] Address [address] [facility] [place] [address] Care Team Providers Care Rn Concurrent Review Name Role Phone Unavailable Primary Care Provider Unavailabl e Source Comments [facility],non-owned Affiliates and Associated Physician Practices is amultiple site organization consisting of ambulatory clinics and hospital sitesin [place], [place], [place] and [place]. This disclosure is being madepursuant to the Care Everywhere program and may not contain all information available regarding this patient. Last updated 18.[facility] Social History Tobacco Use Types Packs/Day Years Used Date Smoking Tobacco: Never Assessed Sex and Gender Information Value Date Recorded Sex Assigned at Not on file Gender Identity Not on file Sexual Orientation Not on file Plan of Treatment Not on file
--- OUTSIDE RECORDS SUMMARY | 2024-10-23 13:27 | XMS_ITS | Encounter Summary ---
Author Organization [facility] Address [address] [facility] [place] [address] Care Team Providers Care Circuit Court Clerk Name Role Phone Unavailable Primary Care Provider Unavailabl e Encounter Details Date Type Department Care Team (Late st Contact Info) Description 05/04/2023 Lab Requisition [facility] - DermPath Lab [address] [facility], [facility] [place] [place] [id number] Saravanan Dunlap MD [address] [place] [address] Social History Tobacco Use Types Packs/Day [...] AM CDT) Case Report Dermatopathology Report Case: [id number] Authorizing Provider: Saravanan Dunlap MD Collected: 05/03/2023 12:00 AM Ordering Location: [facility] DermPath Lab Received: 05/04/2023 03:55 PM Pathologist: Roslyn Villafuerte MD Specimen: Skin, left lateral cali 3 5:55 PM CDT DERMATOPATHOLOGY LABORATORY Final Diagnosis Specimen A. SKIN, left lateral cali: BASAL CELL CARCINOMA, SUPERFICIAL MULTIFOCAL (C44.719) 3 5:55 PM CDT DERMATOPATHOLOGY LABORATORY Clinical History Lentigo vs SK vs SCCA Path#[id number] 3 5:55 PM CDT DERMATOPATHOLOGY LABORATORY Gross [...] characteristic determined by the Dermatopathology Laboratory at [facility], directed by Dr. Johana Villafuerte. These tests need not be, and therefore are not, approved by the [place] Food and Drug Administration. The tests are used for clinical purposes. Billing Codes Specimen Charges Stain Charges 38680 1 3 5:55 PM CDT DERMATOPATHOLOGY LABORATORY Embedded Images 3 5:55 PM CDT DERMATOPATHOLOGY LABORATORY Pathology/Cytolog y TISSUE SPECIMEN FROM SKIN / Unknown 05/03/2023 05/04/2023 3:55 PM CDT Saravanan Dunlap MD LAB - PATHOLOGY/CYTO LOGY ORDERABLES DERMATOPATHOLOGY LABORATORY [facility] - Department of Dermatology [address], [address] [phone] documented in this encounter Visit Diagnoses Not on filedocumented in this encounter
--- OUTSIDE RECORDS SUMMARY | 2024-10-23 13:27 | XMS_ITS | Referral Summary ---
Author Organization [facility] [address] Address [address] [place] [address] Care Team Providers Care Aoc Plans Intelligence Officer Name Role Phone Ernesto Kessler MD Primary Care Provider [phone] Encounters Date Type Department Care Team Description 10/20/2024 2:00 PM BINDERY LIBRARY TECHNICAL ASSISTANT Office Visit [facility] Cardiology at [address] [place] [address] Bandar Hernandez MD History of coronary artery stent placement (Primary Dx); Coronary artery disease involving guidiville coronary artery of guid[place] heart without angina pectoris from Last 3 Months Allergies Active Allergy Reactions Criticality Noted Date Comments Zkczcar-Nob-Lhg Reductase Inhibitors Muscle pain Medium 09/24/2020 Medications aspirin 81 mg enteric coated tablet Take 1 tablet (81 mg total) by mouth daily Active evolocumab (Repatha Curtick) 140 mg/mL pen injector Inject 1 mL (140 mg total) under the skin every 14 (fourteen) days 2 mL 11 05/29/2024 Active Active Problems Problem Noted Date Diagnosed Date Coronary artery disease invo lving guid[place]le coronary artery of guid[place] heart without angina pectoris 05/25/2019 History of [...] on file Legal Sex Male 10:46 AM BINDERY LIBRARY TECHNICAL ASSISTANT Gender Identity Male 09/19/2020 2:59 PM BINDERY LIBRARY TECHNICAL ASSISTANT Sexual Orientation Straight 09/19/2020 2: 59 PM BINDERY LIBRARY TECHNICAL ASSISTANT Last Filed Vital Signs Vital Sign Reading Time Taken Comments Blood Pressure 140/96 10/20/2024 1:48 PM BINDERY LIBRARY TECHNICAL ASSISTANT Pulse 59 10/20/2024 1:48 PM BINDERY LIBRARY TECHNICAL ASSISTANT Temperature 36.3 C (97.3 F) 05/28/2020 1:55 PM CDT Respiratory Rate - - Oxygen Saturation 97% 10/20/2024 1:48 PM BINDERY LIBRARY TECHNICAL ASSISTANT Inhaled Oxygen Concentration - - Weight 115.2 kg (254 lb) 10/20/2024 1:48 PM BINDERY LIBRARY TECHNICAL ASSISTANT Height 190.5 cm (6' 3 ) 10/20/2024 1:48 PM BINDERY LIBRARY TECHNICAL ASSISTANT Body Mass Index 31.75 10/20/2024 1:48 PM BINDERY LIBRARY TECHNICAL ASSISTANT Plan of Treatment Not on file Insurance [facility] [id number] Care Teams Aoc Plans Intelligence Officer Relationship Specialty Start Date End Date Ernesto Kessler MD [address] [place] [address] HAKAN BROWN [id number] PCP - General Family Medicine 02/13/19
== END 2024-10-23 12:00 | disposition home or self-care (01) ==
PROVIDERS: Emergency Provider Physician Assistant; PCP Family Medicine
DX: S60.450A Superficial foreign body of right index finger, initial encounter (principal); Z23 Encounter for immunization; I25.10 Atherosclerotic heart disease of native coronary artery without angina pectoris; W45.8XXA Other foreign body or object entering through skin, initial encounter
CPT/HCPCS: 10120; 73140; 90471; 90715; 99283

== ENCOUNTER 2025-04-13 10:07 | Outpatient (CLI) | payer OTHER, SELFPAY ==
--- NOTE | ~2025-04-13 | XR_ITS ---
[XR ribs RT 2V ] INDICATION: Right rib pain TECHNIQUE: Frontal projection of the upper right ribs, frontal projection of the lower right ribs, oblique projection of all the right ribs, frontal inspiratory chest x-ray for interpretation. FINDINGS: There are no displaced rib fractures identified. There are no soft tissue abnormality seen. The lungs are clear. There is a healed distal right clavicular fracture. IMPRESSION: 1:No acute displaced rib fractures. Reviewed, dictated and finalized at location O.
--- NOTE | ~2025-04-13 | XR_ITS ---
XR lumbar spine 2-3V 04/13/2025 10:40 Indication: Chronic low back pain Procedure: 3 views lumbar spine Comparison: No prior studies for comparison. Findings: Vertebral body heights are maintained. No fracture, subluxation or dislocation. There is mild facet hypertrophy at L4-5. Pedicles intact. Impression: 1: Mild lumbar spondylosis. Reviewed, dictated and finalized at location O. Impression: 1: Mild lumbar spondylosis.
--- NOTE | ~2025-04-13 | XR_ITS ---
EXAM/ PROCEDURE: XR thoracic spine 3V - 04/13/2025 10:12 CDT HISTORY: 49 years old Male with Chronic lbp Chronic lbp COMPARISON: None available TECHNIQUE: Three view(s) FINDINGS/ IMPRESSION: There are no fractures or dislocations.Intervertebral disc spaces are within normal limits. Visualized portion of lungs are clear. Reviewed, dictated and finalized at location N.
== END 2025-04-13 10:08 | disposition home or self-care (01) ==
PROVIDERS: PCP Family Medicine; Visit Provider Chiropractor Rehabilitation
DX: M47.816 Spondylosis without myelopathy or radiculopathy, lumbar region (principal); R07.81 Pleurodynia; M54.50 Low back pain, unspecified; M54.12 Radiculopathy, cervical region
CPT/HCPCS: 71100; 72072; 72100

== ENCOUNTER 2025-05-08 02:06 | Day surgery (SDC) | payer OTHER, SELFPAY ==
--- OUTSIDE RECORDS SUMMARY | 2024-06-09 05:46 | XMS_ITS | Continuity of Care Document ---
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 Therapeutic Activities Neuromuscular Re-Ed Therapeutic Exercise Therapeutic Activities Neuromuscular Re-Ed Therapeutic Exercise Therapeutic Activities Neuromuscular Re-Ed Therapeutic Exercise Therapeutic Activities Neuromuscular Re-Ed Therapeutic Exercise Therapeutic Activities Neuromuscular Re-Ed Therapeutic Exercise Therapeutic Activities Neuromuscular Re-Ed Therapeutic Exercise Progress Note Therapeutic Activities Neuromuscular Re-Ed Therapeutic Exercise Therapeutic Activities Neuromuscular Re-Ed Therapeutic Exercise Therapeutic Activities Neuromuscular Re-Ed Therapeutic Exercise Therapeutic Activities Neuromuscular Re-Ed Therapeutic Exercise Manual Therapy Therapeutic Activities Neuromuscular Re-Ed Therapeutic Exercise Therapeutic Activities Neuromuscular Re-Ed Therapeutic Exercise Progress Note Therapeutic Activities Neuromuscular Re-Ed Therapeutic Exercise Manual Therapy Therapeutic Activities Neuromuscular Re-Ed Therapeutic Exercise Manual Therapy Therapeutic Activities Neuromuscular Re-Ed Therapeutic Exercise Manual Therapy Therapeutic Activities Neuromuscular Re-Ed Therapeutic Exercise Manual Therapy Therapeutic Activities Neuromuscular Re-Ed Therapeutic Exercise Manual Therapy Therapeutic Activities Neuromuscular Re-Ed Therapeutic Exercise Manual Therapy Progress Note Therapeutic Activities Neuromuscular Re-Ed Therapeutic Exercise Manual Therapy Therapeutic Activities Neuromuscular Re-Ed Therapeutic Exercise Manual Therapy Therapeutic Activities Neuromuscular Re-Ed Therapeutic Exercise Manual Therapy Therapeutic Activities Neuromuscular Re-Ed Therapeutic Exercise Manual Therapy Therapeutic Activities Neuromuscular Re-Ed Therapeutic Exercise Manual Therapy Therapeutic Activities Neuromuscular Re-Ed Therapeutic Exercise Manual Therapy Progress Note Therapeutic Activities Neuromuscular Re-Ed Therapeutic Exercise Manual Therapy Therapeutic Activities Neuromuscular Re-Ed Therapeutic Exercise Manual Therapy Therapeutic Activities Neuromuscular Re-Ed Therapeutic Exercise Manual Therapy Therapeutic Activities Neuromuscular Re-Ed Therapeutic Exercise Manual Therapy Therapeutic Activities Neuromuscular Re-Ed Therapeutic Exercise Manual Therapy Therapeutic Activities Neuromuscular Re-Ed Therapeutic Exercise Manual Therapy Progress Note Therapeutic Activities Neuromuscular Re-Ed Therapeutic Exercise Manual Therapy Therapeutic Activities Neuromuscular Re-Ed Therapeutic Exercise Manual Therapy Therapeutic Activities Neuromuscular Re-Ed Therapeutic Exercise Manual Therapy Therapeutic Activities Neuromuscular Re-Ed Therapeutic Exercise Manual Therapy Therapeutic Activities Neuromuscular Re-Ed Therapeutic Exercise Manual Therapy PT Evaluation Low Complexity Therapeutic Activities Neuromuscular Re-Ed Therapeutic Activities Neuromuscular Re-Ed Therapeutic Exercise Therapeutic Activities Neuromuscular Re-Ed Therapeutic Exercise Hot or Cold Pack Therapeutic Activities Neuromuscular Re-Ed Therapeutic Exercise Hot or Cold Pack Therapeutic Activities Neuromuscular Re-Ed Manual Therapy Hot or Cold Pack Electrical Stimulation Therapeutic Activities Neuromuscular Re-Ed Therapeutic Exercise Hot or Cold Pack Therapeutic Activities Neuromuscular Re-Ed Therapeutic Exercise Hot or Cold Pack Progress Note Therapeutic Activities Neuromuscular Re-Ed Therapeutic Exercise Hot or Cold Pack Therapeutic Activities Neuromuscular Re-Ed Hot or Cold Pack Therapeutic Activities Neuromuscular Re-Ed Therapeutic Exercise Manual Therapy Hot or Cold Pack Therapeutic Activities Neuromuscular Re-Ed Therapeutic Exercise Manual Therapy Hot or Cold Pack Therapeutic Activities Neuromuscular Re-Ed Therapeutic Exercise Manual Therapy Hot or Cold Pack Therapeutic Activities Neuromuscular Re-Ed Therapeutic Exercise Manual Therapy Dry Needling 1-2 muscles Therapeutic Activities Neuromuscular Re-Ed Therapeutic Exercise Manual Therapy Hot or Cold Pack Therapeutic Activities Neuromuscular Re-Ed Therapeutic Exercise Manual Therapy Hot or Cold Pack Electrical Stimulation Therapeutic Activities Neuromuscular Re-Ed Therapeutic Exercise Manual Therapy Hot or Cold Pack Electrical Stimulation PT Evaluation Low Complexity Therapeutic Activities Therapeutic Exercise Advance Directives Directive Yes / No Effective Date File Name No Information Encounters Encounter Description Practice Location Reason(s) For Visit Diagnoses Date Provider Providers Copied on Encounter [facility], [address], [place], [place], [id number], tel:[phone] [place] No Information 4 Franco Leonyn. . [facility], [address], [place], [place], [address], [place] tel:[phone] [facility] No Information Sep- 4 Franco Leonyn. . Referring Provider: Mikel Colon [facility] [address], [place], [place], [facility]. tel:[phone] [facility] [address], [place], [place], [address], [place] tel:[phone] [place] No Information Sep- 4 Michoacano Gallegos. . Referring Provider: Mikel Colon [facility] [address], [place], [facility]. tel:[phone] [facility] [address], [place], [place], [address], [place] tel:[phone] [place] No Information Sep-1 4 Michoacano Gallegos. . Referring Provider: Mikel Colon [facility] [address], [place], [facility]. tel:[phone] [facility] [address], [place], [place], [address], [place] tel:[phone] [place] No Information Sep- 4 Franco Leonyn. . Referring Provider: Mikel Colon [facility] [address], [place], [facility]. tel:[phone] [facility], [place], [place], [address], tel:[phone] [place] No Information Sep-0 4 Franco Leonyn. . Referring Provider: Mikel Colon [facility] [address], [place], [address]. tel:[phone] [facility] [address], [place], [place], [address], [place] tel:[phone] [place] No Information Sep-0 4-202 4 Lurtz Rosy. . Referring Provider: Sonido Nelson [address] [place] [address] [address], [place], [address]. tel:[phone] [facility], [place], [place], [address], [place] tel:[phone] [place] No Information Aug-3 0- 4 Franco Diego. . Referring Provider: Sonido Nelson Jessica [facility] [address], [place], [address]. tel:[phone] [facility] [address], [place], [place], [address], [place] tel:[phone] [place] No Information Aug-2 6 4 Franco Diego. . Referring Provider: Sonido Nelson [address] [address] [address], [place], [address]. tel:[phone] [facility], [place], [place], [address], [place] tel:[phone] [facility] No Information Mar-2 4 Franco Diego. . Referring Provider: Sonido Nelson [address] [address] [address], [place], [address]. tel:[phone] [facility] [address], [place], [place], [address], [place] tel:[phone] [place] No Information Mar-1 4 Lurtz Rosy. . Referring Provider: Mikel Colon [facility] [address], [place], [address]. tel:[phone] [facility], [place], [place], [address], [place] tel:[phone] [place] No Information Aug-1 5- 4 Franco Diego. . Referring Provider: Mikel Colon [facility] [address], [place], [address]. tel:+ [facility], [address], [place], [place], [address], [place] tel:[phone] [place] No Information Aug-1 2- 4 Franco Diego. . Referring Provider: Mikel Colon [facility] [address], [place], [address]. tel:[phone] [facility] [address], [place], [place], [address], [place] tel:[phone] [place] No Information Aug-0 9- 4 Franco Diego. . Referring Provider: Mikel Colon [address] [address] [address], [place], [address]. tel:+ [facility] [address], [place], [place], [address], [place] tel:[phone] [place] No Information Aug-0 8 4 Franco Diego. . Referring Provider: Mikel Colon [address] [address] [address], [place], [address]. tel: [facility] [address], [place], [place], [address], [place] tel:[phone] [place] No Information Aug-0 5- 4 Franco Diego. . Referring Provider: Mikel Colon [facility] [address], [place], [address]. tel: [facility] [address], [place], [place], [address], [place] tel:[phone] [place] No Information Aug-0 2-202 4 Franco Diego. . Referring Provider: Mikel Colon [facility] [address], [place], [address]. tel: [facility], [address], [place], [place], [address], [place] tel:[phone] [place] No Information 4 Lurtz Rosy. . Referring Provider: Sonido Nelson Jessica [facility] [address], [place], [address]. tel: [facility] [address], [place], [place], [address], [place] tel:[phone] [place] No Information 4 Lurtz Rosy. . Referring Provider: Mikel Colon [facility] [address], [place], [address]. tel: [facility], [address], [place], [place], [address], [place] tel:[phone] [place] No Information 4 Franco Diego. . Referring Provider: Mikel Colon [facility] [address], [place], [address]. tel: [facility] [address], [place], [place], [address], [place] tel:[phone] [place] No Information 4 Franco Diego. . Referring Provider: Mikel Colon [facility] [address], [place], [address]. tel: [facility] [address], [place], [place], [address], [place] tel:[phone] [place] No Information 4 Franco Diego. . Referring Provider: Mikel Colon [facility] [address], [place], [address]. tel: [facility], [place], [place], [address], [place] tel:[phone] [place] No Information - 4 Franco Diego. . Referring Provider: Mikel Colon [facility] [address], [place], [address]. tel:[phone] [facility], [address], [place], [address], [place] tel:[phone] [place] No Information 4 Franco Diego. . Referring Provider: Sonido Nelson [address] [place] [address] [address], [place], [address]. tel:[phone] [facility] [address], [place], [place], [address], [place] tel:[phone] [place] No Information - 4 Franco Diego. . Referring Provider: Mikel Colon [facility] [address], [place], [address]. tel:[phone] [facility] [address], [place], [place], [address], [place] tel:[phone] [place] No Information Feb-0 8-202 4 Franco Diego. . Referring Provider: Mikel Colon [address] [address] [address], [place], [address]. tel:[phone] [facility] [address], [place], [address], [place] tel:[phone] [place] No Information Feb-0 5-202 4 Franco Diego. . Referring Provider: Mikel Colon [facility] [address], [place], [address]. tel:[phone] [facility] [address], [place], [place], [address], [place] tel:[phone] [place] No Information Diego-0 3-202 4 Franco Diego. . Referring Provider: Mikel Colon [facility] [address], [place], [address]. tel:[phone] [facility], [address], [place], [place], [address], [place] tel:[phone] [place] No Information Diego-0 1-202 4 Franco Diego. . Referring Provider: Mikel Colno [facility] [address], [place], [address]. tel:[phone] [facility] [address], [place], [address], [place] tel:[phone] [place] No Information Kulwant-2 7-202 4 Franco Diego. . Referring Provider: Mikel Colon [facility] [address], [place], [address]. tel:[phone] [facility], [address], [place], [place], [address], [place] tel:[phone] [place] No Information Kulwant-2 6-202 4 Franco Diego. . Referring Provider: Mikel Colon [facility] [address], [place], [facility]. tel:[phone] [facility] [address], [place], [address], [place] tel:[phone] [place] No Information Kulwant-2 4-202 4 Franco Diego. . Referring Provider: Mikel Colon [address] [address] [address], [place], [facility]. tel:[phone] [facility] [address], [place], [place], [address], [place] tel:[phone] [place] No Information Kulwant-2 0-202 4 Franco Diego. . Referring Provider: Mikel Colon [facility] [address], [place], [address]. tel:[phone] [facility] [address], [place], [place], [address], [place] tel:[phone] [place] No Information Kulwant-1 9-202 4 Franco Diego. . Referring Provider: Deepika ColonJessica [facility] [address], [place], [address]. tel:[phone] [facility] [address], [place], [place], [address], [place] tel:[phone] [facility] No Information Kulwant-1 7-202 4 Franco Diego. . Referring Provider: Sonido Nelson [address] [place] [address] [address], [place], [address]. tel:[phone] [facility], [address], [place], [place], [address], [place] tel:[phone] [facility] No Information Kulwant-0 6-202 4 Franco Diego. . Referring Provider: Sonido Nelson Jessica [facility] [address], [place], [address]. tel:[phone] [facility] [address], [place], [address], [place] tel:[phone] [facility] No Information Kulwant-0 5-202 4 Franco Diego. . Referring Provider: Mikel Colon [address] [address] [address], [place], [address]. tel:[phone] [facility] [address], [place], [address], [place] tel:[phone] [place] No Information May-2 2 Autumn Arie. . Referring Provider: Mikel Colon [address] [address] [address], [place], [address]. tel:[phone] [facility] [address], [place], [address], [place] tel:[phone] [place] No Information Oct-2 1-202 2 Autumn Raie. . Referring Provider: Mikel Colon [facility] [address], [place], [address]. tel:[phone] [facility], [place], [place], [address], [place] tel:[phone] [place] No Information Oct-1 4-202 2 Autumn Arie. . Referring Provider: Sonido Nelson DeepikaJessica [facility] [address], [place], [address]. tel:[phone] [facility] [address] [place] [address] [address], [place], [place], [address], [place] tel:[phone] [place] No Information Sep-3 0-202 2 Autumn Arie. . Referring Provider: Sonido Nelson [address] [place] [address] [address], [place], [address]. tel:[phone] [facility] [address] [place] [address], [place], [place], [address], [place] tel:[phone] [place] No Information Sep-2 3-202 2 Autumn Arie. . Referring Provider: Mikel Colon [address] [address] [address], [place], [address]. tel:[phone] [facility] [address] [place] [address] [address], [place], [place], [address], [place] tel:[phone] [place] No Information Sep-1 3-202 2 Autumn Arie. . Referring Provider: Sonido Nelson DeepikaJessica [address] [address] [address], [place], [address]. tel:[phone] [facility] [address] [place] [address], [place], [address], [place] tel:[phone] [place] No Information Sep-0 6-202 2 Autumn Arie. . Referring Provider: Sonido Nelson Jessica [facility] [address], [place], [address]. tel:[phone] [facility] [address] [place] [address] [address], [place], [place], [address], [place] tel:[phone] [place] No Information Aug-2 9-202 2 Autumn Arie. . Referring Provider: Mikel Colon [address] [address] [address], [place], [address]. tel:[phone] [facility], [address], [place], [place], [address], [place] tel:[phone] [place] No Information 2 Autumn Arie. . Referring Provider: Mikel Colon [facility] [address], [place], [address]. tel:[phone] [facility] [address], [place], [place], [address], [place] tel:[phone] [place] No Information 2 Autumn Arie. . Referring Provider: Mikel Colon [facility] [address], [place], [facility]. tel:[phone] [facility], [address], [place], [place], [address], [place] tel:[phone] [place] No Information 2 Autumn Arie. . Referring Provider: Mikel Colon [address] [address] [address], [place], [address]. tel:[phone] [facility] [address], [place], [place], [address], [place] tel:[phone] [place] No Information 2 Autumn Arie. . Referring Provider: Mikel Colon [address] [address] [address], [place], [address]. tel: [facility], [place], [place], [address], [place] tel:[phone] [place] No Information 2 Autumn Arie. . Referring Provider: Mikel Colon [facility] [address], [place], [address]. tel:[phone] [facility], [place], [place], [address], [place] tel:[phone] [place] No Information 2 Autumn Arie. . Referring Provider: Sonido Nelson , [address] [facility] [address], [place], [facility]. tel:[phone] [address], [place], [place], [address], tel:[phone] [place] No Information 2 Autumn Arie. . Referring Provider: Sonido Nelson , [address] [place] [address] [address], [place], [facility]. tel:[phone], [place], [place], [address], tel:[phone] [place] No Information 2 Autumn Arie. . Referring Provider: Sonido Nelson , [address] [place] [address] [address], [place], [facility]. tel:[phone] Family History Family Member Type Diagnosis Age At Onset No Information Payers Payer name Insurance type Covered democrat ID Authormaya jo-ann(s) [employer] EPO WC SP WC [id number] Social History Type Description Quantity Date Captured Comments Sex Male Smoking Status No Information Chief Complaint And Reason For Visit No Information Reason For Referral Reason For Referral No Information History Of Present Illness Encounter Date Complaint History Of Prese nt Illness No Information Functional Status Date Functional Assessmen t No Information Instructions Date Instruction Additional Infor mation Giving encouragement to exercise Related to Overweight Giving encouragement to exercise Related to Overweight Assessments Type Assessment Date No Information Patient Care Teams Name Effective Dates (start - stop) Status Members No Information
[2025-04-26 13:14] VITALS: BMI 31.2
--- OUTSIDE RECORDS SUMMARY | 2025-05-08 02:09 | XMS_ITS | Encounter Summary ---
Author Organization [facility] Address [address] [place] [address] Care Team Providers Care Manager Drug Name Role Phone Unavailable Primary Care Provider Unavailabl e Encounter Details Date Type Department Care Team (Late st Contact Info) Description 05/04/2023 Lab Requisition [facility] - DermPath Lab [address] [facility] [place] [phone] Saravanan Dunlap MD [address] [place] [address] Social History Tobacco Use Types Packs/Day Years Used Date Smoking Tobacco: Never Assessed Sex and Gender Information Value Date Recorded Sex Assigned at Not on file Legal Sex Male 3:27 PM CDT Gender Identity Not on file Sexual Orientation Not on file documented as of this encounter Plan of Treatment Not on file documented as of this encounter Procedures Procedure Name Priority Date/Time Associated Diagnosis Comments DERMATOPATHOLOGY Routine 05/03/2023 12:0 0 AM CDT documented in this encounter Results * DERMATOPATHOLOGY (05/03/2023 12:00 AM CDT) Case Report Dermatopathology Report Case: [id number] Authorizing Provider: Saravanan Dunlap MD Collected: 05/03/2023 12:00 AM Ordering Location: [facility] DermPath Lab Received: 05/04/2023 03:55 PM Pathologist: Roslyn Villafuerte MD Specimen: Skin, left lateral cali 3 5:55 PM CDT DERMATOPATHOLOGY LABORATORY Final Diagnosis Specimen A. SKIN, left lateral cali: BASAL CELL CARCINOMA, SUPERFICIAL MULTIFOCAL (C44.719) 3 5:55 PM CDT DERMATOPATHOLOGY LABORATORY at 1755 CDT Clinical History Lentigo vs SK vs SCCA Path#[id number] 3 5:55 PM CDT DERMATOPATHOLOGY LABORATORY Gross [...] characteristic determined by the Dermatopathology Laboratory at [facility], directed by Dr. Johana Villafuerte. These tests need not be, and therefore are not, approved by the [place] Food and Drug Administration. The tests are used for clinical purposes. Billing Codes Specimen Charges Stain Charges 66314 1 3 5:55 PM CDT DERMATOPATHOLOGY LABORATORY Embedded Images 3 5:55 PM CDT DERMATOPATHOLOGY LABORATORY Pathology/Cytolog y TISSUE SPECIMEN FROM SKIN / Unknown 05/03/2023 05/04/2023 3:55 PM CDT us Saravanan Dunlap MD LAB - PATHOLOGY/CYTOLOGY ORDER DOMINIC Final Result DERMATOPATHOLOGY LABORATORY [facility] - Department of Dermatology [address] [place] [address], [facility] [phone] documented in this encounter Visit Diagnoses Not on filedocumented in this encounter
--- OUTSIDE RECORDS SUMMARY | 2025-05-08 02:09 | XMS_ITS | Clinical Summary ---
Author Organization [facility] [address] Address [address] [place] [address] Care Team Providers Care Ironer Machine Name Role Phone Ernesto Kessler MD Primary Care Provider [phone] Allergies Active Allergy Reactions Criticality Noted Date Comments Qlifobu-Ftd-Tyq Reductase Inhibitors Muscle pain Medium 09/24/2020 Medications aspirin 81 mg enteric coated tablet Take 1 tablet (81 mg total) by mouth daily Active evolocumab (Repatha SureClick) 140 mg/mL pen injector Inject 1 mL (140 mg total) under the skin every 14 (fourteen) days 2 mL 11 05/29/2024 Active Active Problems Problem Noted Date Diagnosed Date Coronary artery disease invo lving [place] coronary artery of [place] heart without angina pectoris 05/25/2019 History of coronary artery stent placement 05/25 Abnormal stress test 02/14/2019 Arthralgia of shoulder 07/29/2015 Surgical History Surgery Date Site/Laterality Comments ANGIOPLASTY [...] on file Legal Sex Male 10:46 AM DRIVER TRAINER Gender Identity Male 09/19/2020 2:59 PM DRIVER TRAINER Sexual Orientation Straight 09/19/2020 2: 59 PM DRIVER TRAINER Obstetrics History Last Filed Vital Signs Vital Sign Reading Time Taken Comments Blood Pressure 140/96 10/20/2024 1:48 PM DRIVER TRAINER Pulse 59 10/20/2024 1:48 PM DRIVER TRAINER Temperature 36.3 C (97.3 F) 05/28/2020 1:55 PM CDT Respiratory Rate - - Oxygen Saturation 97% 10/20/2024 1:48 PM DRIVER TRAINER Inhaled Oxygen Concentration - - Weight 115.2 kg (254 lb) 10/20/2024 1:48 PM DRIVER TRAINER Height 190.5 cm (6' 3) 10/20/2024 1:48 PM DRIVER TRAINER Body Mass Index 31.75 10/20/2024 1:48 PM DRIVER TRAINER Plan of Treatment Health Maintenance Due Date Last Done Comments Colon Cancer Screening-Colonoscopy 1973 Depression Screening 1973 Hepatitis C Screening 1973 Prostate Cancer Screening-PSA 1973 DTaP/Tdap/Td Vaccine (1 - Tdap) 1984 Hepatitis B Screening 1991 Regular Well Visit/Exam 18-64 1991 Zoster Vaccine (1 of 2) 2023 Influenza Vaccine (#1) 2025 9, 05/25/2018, 05/20/2017, Additional history exists Pneumococcal vaccine <65 Aged Out No longer eligible based on patient's age to complete this topic Insurance [facility] [id number] HAKAN ROMERO [id number] Care Teams Ironer Machine Relationship Specialty Start Date End Date Ernesto Kessler MD [address] [place] [address] HAKAN BROWN [phone] PCP - General Family Medicine 02/13/19
--- OUTSIDE RECORDS SUMMARY | 2025-05-08 02:09 | XMS_ITS | Clinical Summary ---
Author Organization [facility] [email or web address] Address [address] [place] [address] Care Team Providers Care Solution Maker Name Role Phone Unavailable Primary Care Provider Unavailabl e Source Comments [facility] [email or web address],non-owned Affiliates and Associated Physician Practices is amultiple site organization consisting of ambulatory clinics and hospital sitesin [place], [place], [place] and [place]. This disclosure is being madepursuant to the Care Everywhere program and may not contain all information available regarding this patient. Last updated 18.[facility] [email or web address] Social History Tobacco Use Types Packs/Day Years [...] 2023 ZOSTER VACCINE (1 of 2) 2023 DEPRESSION SCREENING 08/16/2024 COVID-19 VACCINE (1 - 2023-2 5 season) 2025 INFLUENZA VACCINE (#1) 2025 HIB VACCINE Aged Out No longer eligi ble based on patient's age to complete this topic HPV VACCINE Aged Out No longer eligi ble based on patient's age to complete this topic MENINGOCOCCAL (Group B) VACC INE SHARED DECISION-MAKING Aged Out No longer eligibl e based on patient's age to complete this topic MENINGOCOCCAL GROUPS A/C/Y/W VACCINE Aged Out No longer eligible b ased on patient's age to complete [place] [id number] [employer]
--- OUTSIDE RECORDS SUMMARY | 2025-05-08 02:09 | XMS_ITS ---
Author Organization Unknown ENCOUNTERS Encounter Performer Location Date Diagnosis Diagnosis Status Outpatient Juan Armando [facility] [address] [place] [address] [id number] Emergency [facility] [address] [place] [address] [id number] [place] Pre Admit [facility] [address] [place] [address] [id number] Pre Admit [facility] [address] [place] [address] [id number] [place] Outpatient [facility] [address] [place] [address] [id number] [place] Emergency [facility] [address] [place] [address] [id number] [place] Pre Admit [facility] [address] [place] [address] [id number] Outpatient [facility] [address] [place] [address] [id number] [place] Outpatient [facility] [address] [place] [address] [id number] [place] *Note: Encounters from your own facility or health system may be excluded. Allergies, Adverse Reactions, Alerts Allergen Type Severity Identification Date Medications Name Date Quantity Days Supplied GPI Number
[2025-05-08 12:20] VITALS: BP 130/91; PULSE 93; RESP 20; TEMP 36.3; O2SAT 99; BMI 30.2
[2025-05-08] MEDS: LACTATED RINGERS 1,000 ML 150 ML IV CONT (12:31)
--- NOTE | 2025-05-08 12:50 | P.PNAN_ITS ---
Anes - Initial Pre Proc Eval Procedure: Operation Date: 05/08/25 13:30 Proposed Procedures p Screening Colonoscopy - Juan Armando MD Date/Time: 05/08/25 12:50 Surgeon: Juan Armando MD Pre Op Diagnosis: positive cologuard/screening Patient Data Age: 49 Gender: M Height: 1.91 m Weight: 109.6 kg Last Vital Signs Temp 97.4 F L 05/08/25 12:20 Pulse 93 05/08/25 12:20 Resp 20 05/08/25 12:20 BP 130/91 H 05/08/25 12:20 Pulse Ox 99 05/08/25 12:20 O2 Del Method Room Air 05/08/25 12:20 Allergies Allergy/AdvReac Type Severity Reaction Status Date / Time No Known Allergies Allergy Unknown Verified 05/08/25 12:19 Home Medications ?Medication ?Instructions ?Recorded ?Confirmed ?Type evolocumab 140 mg/mL subcutaneous 140 mg subcut ONCE 0 04/24/22 05/08/25 History pen injector (Repatha SureClick) aspirin 81 mg tablet,delayed 81 mg PO DAILY 03/27/25 0 04/26/25 History release (Adult Low Dose Aspirin) Patient hx anesthesia problems: none Family hx anesthesia problems: none Results Review: All pre-operative results and documents have been reviewed as part of the pre-operative evaluation. 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 Gastrocnemius strain, left Tendonitis of left rotator cuff Surgical History Surgical History Status post Achilles tendon repair Family History Family History Grandparent Family history of arthritis Family history of Alzheimer's disease Father Family history of sudden Social History Social History Smoking status: Never smoker Alcohol intake: current Drinks per week: 2 Alcohol use details: VERY RARE Substance use: never Substance use type: does not use Do You Feel Safe in your Home?: Yes Lack of Transportation: No Lack of Food: Never True Current Housing: I Have Housing Concerned About Future Housing: No Difficulty Paying Gas/Electric Bills: No Difficulty Paying for Meds: No Currently Unemployed: No Education: Master's Degree or Higher Difficulty w/ Childcare or Family Care: No Living arrangements: with family Additional living arrangements comments: with sp Spiritual care concerns: No Anes - Eval Final PreProcedure Day of Procedure 05/08/25 12:50 Patient weight: obese Lungs: normal air movement Airway: Mallampati scale class II Neurological: alert and oriented Last oral intake: >/= 8 hours ASA classification: III Emergent: no Anesthetic plan: proceed Anesthesia type and monitoring: general GIVS and standard monitoring Results Review: All pre-operative results and documents have been reviewed as part of the pre- operative evaluation. Hyperlipidemia, hx PTCA 2019, doing well since, sees pipe changer yearly and pt still exercises, runs, no cp or sob. Informed Consent: The patient's anesthetic plan and its attendant risks and benefits were discussed with the patient/family/POA. Questions were solicited and answers provided to the satisfaction of the patient/family/POA.
--- NOTE | 2025-05-08 12:53 | P.HP_ITS ---
History of Present Illness History of Present Illness Consent: Risks, benefits, and alternatives have been discussed and questions answered. Patient agrees to proceed with procedure. Chief complaint: positive cologuard/screening Narrative: August Khan is a 49 year old male here for first colonoscopy, had + cologuard Review of Systems Review of Systems: All systems reviewed & are unremarkable except as noted in HPI and below PMFSH Past Medical History Medical History (Updated 05/08/25 @ 12:54 by Juan Armando MD) Positive colorectal cancer screening using Cologuard test Right elbow pain Orthopedic aftercare Coronary artery disease (~2019) Dr. Hernandez is [employer] - did cath in 2019 Gastrocnemius strain, left Tendonitis of left rotator cuff Surgical History Surgical History Status post Achilles tendon repair Family History Family History Grandparent Family history of arthritis Family history of Alzheimer's disease Father Family history of sudden Social History Social History Smoking status: Never smoker Alcohol intake: current Drinks per week: 2 Alcohol use details: VERY RARE Substance use: never Substance use type: does not use Do You Feel Safe in your Home?: Yes Lack of Transportation: No Lack of Food: Never True Current Housing: I Have Housing Concerned About Future Housing: No Difficulty Paying Gas/Electric Bills: No Difficulty Paying for Meds: No Currently Unemployed: No Education: Master's Degree or Higher Difficulty w/ Childcare or Family Care: No Living arrangements: with family Additional living arrangements comments: with sp Spiritual care concerns: No Meds Home Medications and Allergies Home Medications ?Medication ?Instructions ?Recorded ?Confirmed ?Type evolocumab 140 mg/mL subcutaneous 140 mg subcut ONCE 0 04/24/22 05/08/25 History pen injector (Anitha Rodriguez) aspirin 81 mg tablet,delayed 81 mg PO DAILY 03/27/25 0 04/26/25 History release (Adult Low Dose Aspirin) Allergies Allergy/AdvReac Type Severity Reaction Status Date / Time No Known Allergies Allergy Unknown Verified 05/08/25 12:19 Vital Signs Vital Signs - 24 hr 05/08/25 12:20 Temperature 97.4 F L Pulse Rate 93 Respiratory Rate 20 Blood Pressure 130/91 H Pulse Oximetry 99 Oxygen Delivery Room Air Exam Const: General: comfortable and no acute distress HENMT: Face/Nose/Sinus: Normal nares present Eyes: General: appearance normal, both eyes and all related structures Neck: Neck: no JVD Resp: Auscultation: clear to auscultation bilaterally Cardio: Rate: regular rate Rhythm: regular rhythm GI: Inspection: non-distended GI Palp: Yes Soft to palpation Skin: General skin exam: normal color Neuro: Speech: normal speech Extrem: General: normal to inspection Psych: Mental Status: mental status grossly normal Assessment and Plan Assessment and plan (1) Positive colorectal cancer screening using Cologuard test: Code(s): R19.5 - Other fecal abnormalities Status: Acute Assessment and Plan: colonoscopy
[2025-05-08 13:10] VITALS: BP 109/76; PULSE 82; RESP 24; O2SAT 95
[2025-05-08 13:20] VITALS: BP 122/88; PULSE 78; RESP 22; O2SAT 98
[2025-05-08 13:30] VITALS: BP 124/89; PULSE 71; RESP 17; O2SAT 99
== END 2025-05-08 13:45 | disposition home or self-care (01) ==
PROVIDERS: PCP Family Medicine; Visit Provider Internal Medicine Gastroenterology
PROC: 0DJD8ZZ Inspection of Lower Intestinal Tract, Via Natural or Artificial Opening Endoscopic (ICD-10-PCS; CPT 45378; principal; 2025-05-08 13:30)
DX: K64.8 Other hemorrhoids (principal); E78.5 Hyperlipidemia, unspecified; I25.10 Atherosclerotic heart disease of native coronary artery without angina pectoris; E66.9 Obesity, unspecified; Z68.30 Body mass index [BMI] 30.0-30.9, adult; Z79.620 Long term (current) use of immunosuppressive biologic; Z79.82 Long term (current) use of aspirin; Z98.890 Other specified postprocedural states; Z95.5 Presence of coronary angioplasty implant and graft
CPT/HCPCS: 45378; J2003; J2704; J7120